=== PATIENT | male | born 1990 | race African-American/Black ===

== ENCOUNTER 2016-05-31 21:16 | Emergency (ER) | payer OTHER ==
[2016-05-31 21:33] VITALS: BP 148/84
--- NOTE | 2016-05-31 22:45 | UC ---
Complaint Male HPI - HPI Summary HPI Summary: The patient comes in today for: 1. Dysuria, hematuria, but no hemaspermia: Onset: March of 2016 Palliative/provocative: Nothing makes his symptoms better or worse. Quality: Dysuria. Region/radiation: Through the whole length of the penis. Severity: 10/10 with urination. 0/10 without urination. Time: Comes and goes Associated symptoms: Fevers: None. PRevious evaluation: He was seen in March. He was tested for GC/ Chlymidia. Both were negative. He has not seen a urologist. He has no PCP. No sores in the mouth. No problems with his eyes. He denies any ejactulodynia or prostatitis. * - History of Current Complaint Chief Complaint: UCGU Stated Complaint: COMPLAINT Time Seen by Provider: 05/31/16 22:36 Hx Obtained From: Patient - Allergies/Home Medications Allergies/Adverse Reactions: Allergies Allergy/AdvReac Type Severity Reaction Status Date / Time No Known Allergies Allergy Verified 10/24/15 20:41 PMH/Surg Hx/FS Hx/Imm Hx Previously Healthy: Yes Endocrine History Of: Denies: Diabetes, Thyroid Disease, Hyperthyroidism, Hypothyroidism, Dyslipidemia Cardiovascular History Of: Denies: Cardiac Disorders, Hypertension, Pacemaker/ICD, Myocardial Infarction , Congestive Heart Failure, Atrial Fibrillation, Deep Vein Thrombosis, Bleeding Disorders Respiratory History Of: Denies: COPD, Asthma, Bronchitis, Pneumonia, Pulmonary Embolism GI/ History Of: Denies: Gastroesophageal Reflux, Ulcer, Gastrointestinal Bleed, Gall Bladder Disease, Kidney Stones, Diverticulitis, Renal Disease, Urosepsis Neurological History Of: Denies: TIA, CVA, Dementia, Seizures, Migraine Psychological History Of: Denies: Anxiety, Depression, Bipolar Disorder, Schizophrenia, Post Traumatic Stress Disorder Cancer History Of: Denies: Lung Cancer, Colorectal Cancer, Breast Cancer, Prostate Cancer, Cervical Cancer Other History Of: Negative For: HIV, Hepatitis B, Hepatitis C, Anticoagulant Therapy - Surgical History Surgical History: None - Family History Known Family History: Positive: Hypertension Negative: Cardiac Disease - Social History Occupation: Employed Full-time Alcohol Use: None Substance Use Type: None Smoking Status (MU): Never Smoked Tobacco Review of Systems Constitutional: Negative Skin: Negative Eyes: Negative ENT: Negative Respiratory: Negative Cardiovascular: Negative Gastrointestinal: Negative Genitourinary: Dysuria, Hematuria Motor: Negative All Other Systems Reviewed And Are Negative: Yes Physical Exam Triage Information Reviewed: Yes Appearance: Well-Appearing, No Pain Distress, Well-Nourished Vital Signs: Initial Vital Signs Temp 98.0 F 05/31/16 21:29 Pulse 75 05/31/16 21:29 Resp 18 05/31/16 21:29 BP 148/84 05/31/16 21:29 Pulse Ox 99 05/31/16 21:29 Vital Signs Reviewed: Yes Eyes: Positive: Conjunctiva Clear. Negative: Discharge ENT: Positive: Hearing grossly normal. Negative: Pharyngeal erythema, Nasal congestion, Nasal drainage, TM bulging, TM dull, TM red, Tonsillar swelling, Tonsillar exudate Dental: Negative: Gross Decay/Caries @, Dental Fracture @ Neck: Positive: Supple, Nontender, No Lymphadenopathy. Negative: Nuchal Rigidity Respiratory: Positive: Chest non-tender, Lungs clear, No respiratory distress, No accessory muscle use. Negative: Crackles, Wheezing Cardiovascular: Positive: RRR, No Murmur Abdomen Description: Positive: Nontender, No Organomegaly, Soft. Negative: Distended, Guarding Musculoskeletal: Positive: Strength Intact, ROM Intact, No Edema Neurological: Positive: Alert, Muscle Tone Normal Psychological: Positive: Age Appropriate Behavior, Consolable Skin: Negative: rashes, breakdown UC Physical Exam Vital Signs On Initial Exam: Initial Vitals Temp Pulse Resp BP Pulse Ox 98.0 F 75 18 148/84 99 05/31/16 21:29 05/31/16 21:29 05/31/16 21:29 05/31/16 21:29 05/31/16 21:29 - Genitalia Exam Male Genitalia: Not Circumcised, Other - The penis is soft with no masses or tenderness. No urethral discharge even with milking the penis. Testes were down bilaterally and free of any masses or tenderness. No inquinal adenopathy and no hernia presant. He declined a prostate exam due to shortness of time. No lesions such as ulcers. Diagnostics - Laboratory Diagnostic Studies Completed/Ordered: Urine screen: Specific gravity: 1.025. WBC: 25. Nitrite: (-). Blood: 5-10. Protein: 30. Glucose: (-) Complaint Male Course/Dx - Course Course Of Treatment: Patient was told that we will do some tests (GC/chlam, ureaplasm, mycoplasma) and refer him to urology. To help with pain, will give him pyridium. - Differential Dx/Diagnosis Differential Diagnosis/HQI/PQRI: Epididymitis, Prostatitis Provider Diagnoses: dysuria. hematuria Discharge - Discharge Plan Condition: Stable Disposition: HOME Prescriptions: Phenazopyridine TAB* [Pyridium TAB*] 200 mg PO TID #60 tab Patient Education Materials: Hematuria (ED), Dysuria (ED) Referrals: Jarek Gardner MD [Primary Care Provider] - Minh Swann MD [Medical Doctor] - As Soon As Possible (Call the urologist's office for an appointment as soon as you can for a follow-up evaluation.)
[2016-05-31] MEDS ORDERED: Phenazopyridine TAB* 100 MG PO ONE (22:47)
[2016-06-03 16:28] LABS: Mycoplasma hominis Result Negative; Mycoplasma hominis Source URINE; Ureaplasma Source URINE; Ureaplasma parvum PCR Negative; Ureaplasma urealyticum PCR Negative
== END 2016-05-31 22:57 | disposition home or self-care (01) ==
LOC: UCEAST 21:16
DX: R30.0 Dysuria (principal); R31.9 Hematuria, unspecified
CPT/HCPCS: 81002; 87086; 87491; 87591; 87798; 99212; A9270-GY; G0463

== ENCOUNTER 2016-06-21 19:13 | Emergency (ER) | payer OTHER ==
[2016-06-21 19:22] VITALS: BP 131/73
[2016-06-21] MEDS ORDERED: Benzocaine/Butamben/Tetracain* SPRAY ONE (19:39)
[2016-06-21] MEDS ORDERED: Ethyl Chloride SPRAY (NF) BTL ONE (19:44)
--- NOTE | 2016-06-21 19:54 | UC ---
Skin Complaint HPI - HPI Summary HPI Summary: pt presents with c/o of tenderness and mild swelling in right thumb along cuticle - History of Current Complaint Chief Complaint: UCSkin Time Seen by Provider: 06/21/16 19:16 Stated Complaint: THUMB PAIN Hx Obtained From: Patient Onset/Duration: Gradual Onset, Lasting Days Skin Exposure Onset/Duration: Days Ago Timing: Constant Onset Severity: Mild Current Severity: Mild Character: Pain, Redness, Raised Aggravating: Touch Alleviating: Nothing Associated Signs & Symptoms: Positive: Tenderness - Allergy/Home Medications Allergies/Adverse Reactions: Allergies Allergy/AdvReac Type Severity Reaction Status Date / Time No Known Allergies Allergy Verified 06/21/16 19:21 Home Medications: Home Medications NK [No Home Medications Reported] 06/21/16 [History Confirmed 06/21/16] Review of Systems Constitutional: Negative Skin: Other - paronychia right thumb Eyes: Negative ENT: Negative Respiratory: Negative Cardiovascular: Negative Gastrointestinal: Negative Genitourinary: Negative Motor: Negative Neurovascular: Negative Musculoskeletal: Negative Neurological: Negative Psychological: Negative All Other Systems Reviewed And Are Negative: Yes PMH/Surg Hx/FS Hx/Imm Hx Previously Healthy: Yes Endocrine History Of: Denies: Diabetes, Thyroid Disease, Hyperthyroidism, Hypothyroidism, Dyslipidemia Cardiovascular History Of: Denies: Cardiac Disorders, Hypertension, Pacemaker/ICD, Myocardial Infarction , Congestive Heart Failure, Atrial Fibrillation, Deep Vein Thrombosis, Bleeding Disorders Respiratory History Of: Denies: COPD, Asthma, Bronchitis, Pneumonia, Pulmonary Embolism GI/ History Of: Denies: Gastroesophageal Reflux, Ulcer, Gastrointestinal Bleed, Gall Bladder Disease, Kidney Stones, Diverticulitis, Renal Disease, Urosepsis Neurological History Of: Denies: TIA, CVA, Dementia, Seizures, Migraine Psychological History Of: Denies: Anxiety, Depression, Bipolar Disorder, Schizophrenia, Post Traumatic Stress Disorder Cancer History Of: Denies: Lung Cancer, Colorectal Cancer, Breast Cancer, Prostate Cancer, Cervical Cancer Other History Of: Negative For: HIV, Hepatitis B, Hepatitis C, Anticoagulant Therapy - Surgical History Surgical History: Yes Surgery Procedure, Year, and Place: WISDOM TEETH - Family History Known Family History: Positive: Hypertension Negative: Cardiac Disease - Social History Alcohol Use: None Substance Use Type: None Smoking Status (MU): Never Smoked Tobacco Physical Exam Triage Information Reviewed: Yes Appearance: Well-Appearing Vital Signs: Initial Vital Signs Temp 98.7 F 06/21/16 19:15 Pulse 59 06/21/16 19:15 Resp 16 06/21/16 19:15 BP 131/73 06/21/16 19:15 Eye Exam: Normal Respiratory: Positive: No respiratory distress Musculoskeletal Exam: Normal Neurological Exam: Normal Psychological Exam: Normal Skin Exam: Other - paronychia right thumb Course/Dx - Differential Diagnoses - Skin Complaint Differential Diagnoses: Cellulitis, Other - paronychia, right thumb - Diagnoses Provider Diagnoses: paronychia, right thumb Procedures - Incision and Drainage Site: right thumb Anesthesia: Topical Instrument(s): Scalpel - incision and drainage with 11 blade, ethyl chloride spray applied, small incision made, small amount of purulent drainage. Pt then place right thumb in normal saline and hibicleanse to soak post drainage.. Pt tolerated procedure well. Discharge - Discharge Plan Condition: Stable Disposition: HOME Patient Education Materials: Paronychia (ED) Referrals: Jarek Gardner MD [Primary Care Provider] -
== END 2016-06-21 20:04 | disposition home or self-care (01) ==
LOC: UCEAST 19:13
DX: L03.011 Cellulitis of right finger (principal)
CPT/HCPCS: 10060; 99211; A9270-GY; G0463

== ENCOUNTER 2017-05-28 16:05 | Emergency (ER) | payer SELFPAY ==
[2017-05-28 16:21] VITALS: BP 136/75
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
== END 2017-05-28 16:59 | disposition home or self-care (01) ==
LOC: UCEAST 16:05
DX: S06.0X9A Concussion with loss of consciousness of unspecified duration, initial encounter (principal); S00.03XA Contusion of scalp, initial encounter; V47.5XXA Car driver injured in collision with fixed or stationary object in traffic accident, initial encounter; Y93.89 Activity, other specified; Y92.410 Unspecified street and highway as the place of occurrence of the external cause; E66.9 Obesity, unspecified; R51 Headache
CPT/HCPCS: 99212; G0463

== ENCOUNTER 2017-05-28 22:02 | Emergency (ER) | payer SELFPAY ==
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
[2017-05-28] MEDS ORDERED: Ibuprofen TAB* 800 MG PO ONE (23:21)
[2017-05-28 23:46] VITALS: BP 131/79
== END 2017-05-28 23:39 | disposition home or self-care (01) ==
LOC: ED 22:02
DX: S06.0X0A Concussion without loss of consciousness, initial encounter (principal); V47.0XXA Car driver injured in collision with fixed or stationary object in nontraffic accident, initial encounter; Y92.410 Unspecified street and highway as the place of occurrence of the external cause
CPT/HCPCS: 99282; A9270-GY

== ENCOUNTER 2017-08-14 18:02 | Emergency (ER) | payer BC ==
[2017-08-14 18:16] VITALS: BP 137/69
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
[2017-08-14] MEDS ORDERED: Cyclobenzaprine TAB* 10 MG PO ONE (19:14)
[2017-08-14] MEDS ORDERED: Naproxen TAB* 250 MG PO ONE (19:14)
--- NOTE | 2017-08-14 19:24 | RAD ---
Indication: Low back pain after playing basketball 4 days ago. Comparison: May 11, 2014 Technique: AP and lateral views lumbar sacral spine. Report: Straightening relative to normal lumbar lordosis without spondylolisthesis at any level. Negative for fracture. Moderate L5-S1 disc space narrowing without change. Unremarkable paraspinal soft tissue contours. IMPRESSION: 1. Negative for fracture or spondylolisthesis. 2. Moderate L5-S1 disc space narrowing without change. Given absence of secondary degenerative findings such as vertebral endplate osteophytosis or reactive endplate sclerosis the narrowing may represent congenital variation rather than degenerative spondylosis.
== END 2017-08-14 19:49 | disposition home or self-care (01) ==
LOC: UCEAST 18:02
DX: S39.012A Strain of muscle, fascia and tendon of lower back, initial encounter (principal); X58.XXXA Exposure to other specified factors, initial encounter; Y93.67 Activity, basketball; Y92.310 Basketball court as the place of occurrence of the external cause
CPT/HCPCS: 72100; 99212; A9270-GY; G0463

== ENCOUNTER 2017-11-08 22:16 | Emergency (ER) | payer SELFPAY ==
[2017-11-08] MEDS ORDERED: Cyclobenzaprine TAB* 10 MG PO ONE (23:15)
[2017-11-08] MEDS ORDERED: Ibuprofen TAB* 800 MG PO ONE (23:15)
--- NOTE | 2017-11-08 23:17 | ED ---
Upper Extremity Pain - HPI Summary HPI Summary: 26-year-old male presents with right shoulder pain today. He states he was trying to restrain a patient and he felt a pop in his shoulder. He denies any history of dislocation or injury to shoulder. He denies any numbness or tingling. He stated pain is worse when tries to move his arm. No other injury. He hasn't taking anything for his pain. 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 - History of Current Complaint Chief Complaint: EDExtremityUpper Stated Complaint: RT SHOULDER INJURY Time Seen by Provider: 11/08/17 22:48 - Allergies/Home Medications Allergies/Adverse Reactions: Allergies Allergy/AdvReac Type Severity Reaction Status Date / Time No Known Allergies Allergy Verified 08/14/17 18:16 PMH/Surg Hx/FS Hx/Imm Hx Endocrine/Hematology History: Denies: Hx Anticoagulant Therapy, Hx Diabetes, Hx Thyroid Disease Cardiovascular History: Denies: Hx Congestive Heart Failure, Hx Deep Vein Thrombosis, Hx Hypertension , Hx Myocardial Infarction, Hx Pacemaker/ICD, Hx Peripheral Vascular Disease Respiratory History: Denies: Hx Asthma, Hx Chronic Obstructive Pulmonary Disease (COPD), Hx Lung Cancer, Hx Pneumonia, Hx Pulmonary Embolism GI History: Denies: Hx Gall Bladder Disease, Hx Gastrointestinal Bleed, Hx Ulcer, Hx Urosepsis History: Denies: Hx Kidney Stones, Hx Renal Disease Musculoskeletal History: Denies: Hx Arthritis, Hx Osteoporosis Sensory History: Denies: Hx Cataracts, Hx Contacts or Glasses, Hx Glaucoma Opthamlomology History: Denies: Hx Cataracts, Hx Contacts or Glasses, Hx Glaucoma Neurological History: Denies: Hx Dementia, Hx Headaches, Hx Migraine, Hx Seizures, Hx Transient Ischemic Attacks (TIA) Psychiatric History: Denies: Hx Anxiety, Hx Depression, Hx Schizophrenia, Hx Bipolar Disorder - Surgical History Surgery Procedure, Year, and Place: WISDOM TEETH Infectious Disease History: No Infectious Disease History: Denies: Hx Clostridium Difficile, Hx Hepatitis, Hx Human Immunodeficiency Virus (HIV), Hx of Known/Suspected MRSA, Hx Shingles, Hx Tuberculosis, Hx Known/ Suspected VRE, Hx Known/Suspected VRSA, History Other Infectious Disease, Traveled Outside the [place] in Last 30 Days - Family History Known Family History: Positive: Hypertension Negative: Cardiac Disease - Social History Alcohol Use: None Hx Substance Use: No Substance Use Type: Reports: None Hx Tobacco Use: No Smoking Status (MU): Never Smoked Tobacco Review of Systems Negative: Fever Negative: Chest Pain Negative: Shortness Of Breath Positive: Myalgia - right shoulder pain All Other Systems Reviewed And Are Negative: Yes Physical Exam Triage Information Reviewed: Yes Vital Signs On Initial Exam: Initial Vitals Temp Pulse Resp BP Pulse Ox 98.4 F 66 16 135/65 98 11/08/17 22:20 11/08/17 22:20 11/08/17 22:20 11/08/17 22:20 11/08/17 22:20 Vital Signs Reviewed: Yes Appearance: Positive: Well-Appearing Skin: Positive: Warm, Dry Head/Face: Positive: Normal Head/Face Inspection Eyes: Positive: Normal, Conjunctiva Clear ENT: Positive: Pharynx normal Respiratory/Lung Sounds: Positive: Clear to Auscultation, Breath Sounds Present Cardiovascular: Positive: Normal, RRR Musculoskeletal: Positive: Limited @ - right shoulder, Other - tenderness right shoulder, no step off, good pulses, capillary refill<2 secs, good fruit farmworker strenght Neurological: Positive: Normal Psychiatric: Positive: Normal Diagnostics - Vital Signs Vital Signs Temp Pulse Resp BP Pulse Ox 11/08/17 23:13 97.9 F 53 18 120/61 99 11/08/17 22:20 98.4 F 66 16 135/65 98 - Laboratory Lab Statement: Any lab studies that have been ordered have been reviewed, and results considered in the medical decision making process. - Radiology shoulder Xray Interpretation: No Acute Changes Radiology Interpretation Completed By: ED Physician Course/Dx - Course Course Of Treatment: 26-year-old male presents with right shoulder pain today. He states he was trying to restrain a patient and he felt a pop in his shoulder. He denies any history of dislocation or injury to shoulder. He denies any numbness or tingling. He stated pain is worse when tries to move his arm. No other injury. He hasn't taking anything for his pain. 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 On exam no deformity seen. Neurovascular intact. Tenderness over right shoulder. Is very hesitant to move the shoulder due to pain. X-ray shows no dislocation or fracture. Gave sling for comfort. We'll place on short course muscle relaxers. We'll have follow-up with orthopedist as may have rotator cuff injury. Patient understands agrees with plan. - Diagnoses Differential Diagnosis/HQI/PQRI: Positive: Fracture (Closed), Strain, Sprain Provider Diagnoses: Right shoulder pain Discharge - Sign-Out/Discharge Documenting (check all that apply): Patient Departure - Discharge Plan Condition: Good Disposition: HOME Prescriptions: Cyclobenzaprine TAB* [Flexeril 10 MG TAB*] 10 mg PO TID PRN #21 tab PRN Reason: Pain Patient Education Materials: Shoulder Pain (ED) Forms: *Work Release Referrals: [facility] [place] [facility]ERR[facility] [Outside] Aracely Pantoja MD [Medical Doctor] - Additional Instructions: Take Tylenol and ibuprofen every 6 hours as needed for pain take muscle relaxer three times a day Ice/heat Can rest for one day and then need to do range of motion activities for shoulder Follow up with ortho Return to ED if develop any new or worsening symptoms - Billing Disposition and Condition Condition: GOOD Disposition: Home
[2017-11-08 23:37] VITALS: BP 147/77
--- NOTE | 2017-11-09 08:04 | RAD ---
Indication: RIGHT shoulder pain following injury. Unable to raise the arm. Comparison: No relevant prior exams available on the [facility] for comparison. Technique: Internal rotation AP, external rotation Grashey, scapular Y, axillary views RIGHT shoulder Report: Negative for fracture. Normal acromioclavicular and glenohumeral joint alignment. Unremarkable soft tissue contours. IMPRESSION: #. Negative radiographic exam of the RIGHT shoulder. R0
== END 2017-11-08 23:35 | disposition home or self-care (01) ==
LOC: ED 22:16
DX: M25.511 Pain in right shoulder (principal); Z82.49 Family history of ischemic heart disease and other diseases of the circulatory system
CPT/HCPCS: 99282; A9270-GY

== ENCOUNTER 2018-01-18 17:44 | Emergency (ER) | payer SELFPAY ==
--- OUTSIDE RECORDS SUMMARY | 2018-01-18 17:51 | XMS REPORT ---
:1990 External Reference #:[id number] Author Organization [facility] Address [address] [place] [address] [place] [address] Phone [phone] Care Team Providers Name Role Phone Aracely Pantoja M.D. Care Team Information Survey Manager Unavailable Payers Type Date Identification Numbers Payment Subscriber Provider Workers Compensation Onset: Policy Number: [facility] [employer] 2017 [id number] [employer] [facility] [employer] Group Name: FX # [address] [facility] PayID: [place] [address] Problems Date Description Provider Status Onset: 11/15/2017 Sprain of acromioclavicular ligament Aracely Pantoja M.D. Active Family History Date Family Member(s) Problem(s) Comments General No Current Problems Social History Type Date Description Comments ETOH Use Denies alcohol use Smoking Patient has never smoked Exercise Type/Frequency Exercises regularly Allergies, Adverse Reactions, Alerts Date Description Reaction Status Severity Comments 11/15/2017 NKDA active Medications Medication Date Status Form Strength Qnty SIG Indications Ordering Provider Meloxicam Active Tablets 15mg 30tabs 1 by M25.511 Aracely 018 mouth Kit, every M.D. day Cyclobenzaprine 0 Active Tablets 10mg Unknown HCL 000 Vital Signs Date Vital Result Comment 12/27/2017 Height 73 inches 6'1" Weight 212.00 lb BP Systolic 104 mmHg BP Diastolic 68 mmHg Body Temperature 97.8 F BMI (Body Mass Index) 28.0 kg/m2 11/29/2017 Height 72 inches 6'0" Heart Rate 48 /min BP Systolic Sitting 102 mmHg BP Diastolic Sitting 70 mmHg Respiratory Rate 16 /min Pain Level 8 11/15/2017 Height 72 inches 6'0" Weight 222.00 lb Heart Rate 60 /min BP Systolic 112 mmHg BP Diastolic 68 mmHg BMI (Body Mass Index) 30.1 kg/m2 Results Description No Information Procedures Description No Information Encounters Type Date Location Provider CPT E/M Dx Office Visit 12/27/2017 [facility] Aracely Pantoja M.D. 18670 M25.511 2:00p Of CRomeo W19.xxxA S42.001A Office Visit 11/29/2017 2:00p [facility] Aracely Pantoja, 87445 S42.001A Lamont Dash M25.511 W19.xxxA Office Visit 11/15/2017 1:45p [facility] Aracely Pantoja M.D. 34579 M25.511 C.MVeneciaAVenecia S43.51xA W19.xxxA S43.51xA Plan of Care Future Appointment(s):02/07/2018 2:00 pm - Aracely Pantoja M.D. at [facility].12/27/2017 - Aracely Pantoja M.D.M25.511 Pain in right shoulderNew Xrays:Shoulder Right 2+ VWSFollow up:Follow up: 6 momooL83.xxxA Unspecified fall, initial krosyhwboJ90.001A Fracture of unsp part of right clavicle, init for clos fx
[2018-01-18 17:59] VITALS: BP 139/69
--- NOTE | 2018-01-18 18:27 | UC ---
Throat Pain/Nasal Bao HPI - HPI Summary HPI Summary: The patient is a 27-year-old male with a 5 day history of fever/ chills, headache, and myalgias. He has no nausea vomiting or diarrhea. He has no chest pain or shortness of breath. He denies any earache or runny nose. He has had a very mild intermittent sore throat. He has not had a cough. He has no abdominal pain. He has had some low back pain. Denies any rash. He has some mild dysuria that started yesterday morning. He has no increased frequency of urination but no hesitancy of urination. - History of Current Complaint Chief Complaint: UCGeneralIllness Stated Complaint: FEVER,ST,ACHES Time Seen by Provider: 01/18/18 18:08 Hx Obtained From: Patient Onset/Duration: Gradual Onset Severity: Moderate Pain Intensity: 4 Pain Scale Used: 0-10 Numeric Cough: None Associated Signs & Symptoms: Positive: Fever. Negative: Dysphagia, FB Sensation , Drooling, Wheezing, Hoarseness, Sinus Discomfort, Nasal Discharge, Vomiting, Rash - Epiglottits Risk Factors Epiglottis Risk Factors: Negative - Allergies/Home Medications Allergies/Adverse Reactions: Allergies Allergy/AdvReac Type Severity Reaction Status Date / Time Penicillins Allergy Rash Verified 01/18/18 17:59 Home Medications: Home Medications Acetaminophen/Caff/Dihydrocod [Acetaminophen/Caffeine/Di 325-30-16 mg] 1 tab PO DAILY 01/18/18 [History Confirmed 01/18/18] PMH/Surg Hx/FS Hx/Imm Hx Previously Healthy: Yes Other History Of: Negative For: HIV, Hepatitis B, Hepatitis C, Anticoagulant Therapy - Surgical History Surgical History: Yes Surgery Procedure, Year, and Place: WISDOM TEETH - Family History Known Family History: Positive: Hypertension Negative: Cardiac Disease - Social History Alcohol Use: None Substance Use Type: None Smoking Status (MU): Never Smoked Tobacco Review of Systems Constitutional: Fever, Chills, Fatigue Skin: Negative Eyes: Negative ENT: Sore Throat - mild Respiratory: Negative Cardiovascular: Negative Gastrointestinal: Negative Genitourinary: Dysuria Motor: Negative Neurovascular: Negative Musculoskeletal: Myalgia Neurological: Negative Psychological: Negative Is Patient Immunocompromised?: No All Other Systems Reviewed And Are Negative: Yes Physical Exam Triage Information Reviewed: Yes Appearance: Well-Appearing, No Pain Distress, Well-Nourished Vital Signs: Initial Vital Signs Temp 98.8 F 01/18/18 17:53 Pulse 76 01/18/18 17:53 Resp 18 01/18/18 17:53 BP 139/69 01/18/18 17:53 Pulse Ox 100 01/18/18 17:53 Vital Signs Reviewed: Yes Eyes: Positive: Conjunctiva Clear ENT: Positive: Hearing grossly normal, Pharynx normal, TMs normal, Uvula midline. Negative: Pharyngeal erythema, Nasal congestion, Nasal drainage, TM bulging, TM dull, TM red, Tonsillar swelling, Tonsillar exudate, Trismus, Muffled voice, Hoarse voice, Dental tenderness, Sinus tenderness Dental Exam: Normal Neck: Positive: Supple, Nontender, No Lymphadenopathy Respiratory: Positive: Lungs clear, Normal breath sounds, No respiratory distress, No accessory muscle use Cardiovascular: Positive: RRR, No Murmur Abdomen Description: Positive: Nontender, No Organomegaly, Soft. Negative: CVA Tenderness (R), CVA Tenderness (L), Distended, Guarding Bowel Sounds: Positive: Present Musculoskeletal: Positive: ROM Intact, No Edema Neurological: Positive: Alert, Muscle Tone Normal Psychological Exam: Normal Skin Exam: Normal Diagnostics - Laboratory Diagnostic Studies Completed/Ordered: UA: tr leuks. strep (-) Throat Pain/Nasal Course/Dx - Differential Dx/Diagnosis Provider Diagnoses: febrile illness. pharyngitis. dysuria Discharge - Sign-Out/Discharge Documenting (check all that apply): Patient Departure All imaging exams completed and their final reports reviewed: No Studies - Discharge Plan Condition: Stable Disposition: HOME Prescriptions: DOXYcycline CAP(*) [DOXYcycline 100MG CAP(*)] 100 mg PO BID #20 cap Patient Education Materials: Pharyngitis (ED), Fever in Adults (ED), Dysuria ( ED) Referrals: No Primary Care Phys,NOPCP [Primary Care Provider] - Additional Instructions: recheck in 2-3 days if still febrile recheck for new or worsening symptoms a urine culture is pending - Billing Disposition and Condition Condition: STABLE Disposition: Home
== END 2018-01-18 18:37 | disposition home or self-care (01) ==
LOC: UCEAST 17:44
DX: R50.9 Fever, unspecified (principal); J02.9 Acute pharyngitis, unspecified; R30.0 Dysuria; M54.5 Low back pain; Z88.0 Allergy status to penicillin
CPT/HCPCS: 81003; 87086; 87491; 87591; 87651; 99212; G0463

== ENCOUNTER 2018-02-28 11:54 | Emergency (ER) | payer OTHER ==
--- OUTSIDE RECORDS SUMMARY | 2018-02-28 12:01 | XMS REPORT ---
:1990 External Reference #:[id number] Author Organization [facility] Address [address] [place] [address] Phone [phone] Care Team Providers Name Role Phone Patient's Choice Primary Care Physician Unavailable Payers Type Date Identification Numbers Payment Subscriber Provider Workers Compensation Onset: Policy Number: [facility] [employer] 2017 [id number] [facility] Fund Group Name: FX # [id number] [facility] PayID: [place] [address] Problems Date Description Provider Status Onset: 11/15/2017 [...] 000 Vital Signs Date Vital Result Comment 02/07/2018 Height 73 inches 6'1" Weight 204.00 lb BP Systolic 102 mmHg BP Diastolic 62 mmHg Body Temperature 98.1 F BMI (Body Mass Index) 26.9 kg/m2 12/27/2017 Height 73 inches 6'1" Weight 212.00 [...] Visit 12/27/2017 [facility] Aracely Pantoja M.D. 10431 M25.511 2:00p Of C.M.AVenecia W19.xxxA S42.001D Office Visit 11/29/2017 2:00p [facility] Aracely Pantoja 47975 S42.001A C.MRossana Dash M25.511 W19.xxxA Office Visit 11/15/2017 1:45p [facility] Aracely Pantoja M.D. 70083 M25.511 C.MRossana S43.51xA W19.xxxA S43.51xA Plan of Care 02/07/2018 - Aracely Pantoja M.D.M25.511 Pain in right shoulderFollow up:Follow up : As kdlvdgF18.xxxA Unspecified fall, initial dkdztpwioI94.001D Fx unsp part of r clavicle, subs for fx w vinicius heal
--- OUTSIDE RECORDS SUMMARY | 2018-02-28 12:01 | XMS REPORT ---
:1990 External Reference #:[id number] Author Organization [facility] Address [address] [place] [address] [place] [address] Phone [phone] Care Team Providers Name Role Phone Patient's Choice Primary Care Physician Unavailable Payers Type Date Identification Numbers Payment Subscriber Provider Workers Compensation Onset: Policy Number: [facility] [employer] 2017 [id number] [employer] Fund Group Name: FX # [address] [facility] PayID: [place] [address] Problems Date Description Provider Status Onset: 11/15/2017 Sprain of acromioclavicular ligament Aracely Pantoja M.D. Active Onset: 02/21/2018 Fx unsp part of r clavicle, subs for fx w Aracely Pantoja M.D. Active routn heal Onset: 02/21/2018 Shoulder joint pain Aracely Pantoja M.D. Active Family History Date [...] 0 Active Tablets 10mg Unknown HCL 000 Meloxicam Hx Tablets 15mg 30tabs 1 by M25.511 Aracely 018 - mouth Kit, every M.D. 018 day Vital Signs Date Vital Result Comment 02/21/2018 Height 73 inches 6'1" Weight 201.00 lb BP Systolic 124 mmHg BP Diastolic 64 mmHg Body Temperature 97.9 F BMI (Body Mass Index) 26.5 kg/m2 02/07/2018 Height 73 inches 6'1" Weight 204.00 [...] Location Provider CPT E/M Dx Office Visit 02/21/2018 [facility] Aracely Pantoja M.D. 81030 M25.511 3:45p Of Lamont W19.xxxD S42.001D Office Visit 02/07/2018 2:00p [facility] Aracely Pantoja M.D. 26710 M25.511 C.MRossana W19.xxxA S42.001D Office Visit 12/27/2017 2:00p [facility] Aracely Pantoja M.D. 19335 M25.511 CVeneciaMRossana W19.xxxA S42.001D Office Visit 11/29/2017 2:00p [facility] Aracely Pantoja 79953 S42.001A Lamont Dash M25.511 W19.xxxA Office Visit 11/15/2017 1:45p [facility] Aracely Pantoja M.D. 24347 M25.511 CRomeo S43.51xA W19.xxxA S43.51xA Plan of Care Future Appointment(s):04/04/2018 2:45 pm - Aracely Pantoja M.D. at [facility]02/21/2018 - Aracely Pantoja M.D.M25.511 Pain in right shoulderNew Medication:Meloxicam 15 mgNew Xrays:Shoulder Right 2+ VWSNew Therapy :Physical TherapyFollow up:Follow up: 4 yntjkD11.xxxD Unspecified fall, subsequent saezywabnX15.001D Fx unsp part of r clavicle, subs for fx margarito cox
[2018-02-28 12:13] VITALS: BP 123/67
--- NOTE | 2018-02-28 12:58 | UC ---
Respiratory Complaint HPI - HPI Summary HPI Summary: 27 yo male with 4 day hx of cough, sore throat and post nasal drip no f/c no n/v/d no cp or sob mild myalgias - History of Current Complaint Chief Complaint: UCRespiratory Stated Complaint: COUGH Time Seen by Provider: 02/28/18 12:48 Hx Obtained From: Patient Onset/Duration: Sudden Onset, Gradual Onset Timing: Constant Severity Initially: Mild Severity Currently: Moderate Pain Intensity: 0 Pain Scale Used: 0-10 Numeric Character: Cough: Nonproductive Aggravating Factors: Nothing Alleviating Factors: Nothing Associated Signs And Symptoms: Positive: Nasal Congestion - Allergies/Home Medications Allergies/Adverse Reactions: Allergies Allergy/AdvReac Type Severity Reaction Status Date / Time Penicillins Allergy Rash Verified 02/28/18 12:13 PMH/Surg Hx/FS Hx/Imm Hx Previously Healthy: Yes Other History Of: Negative For: HIV, Hepatitis B, Hepatitis C, Anticoagulant Therapy - Surgical History Surgical History: Yes Surgery Procedure, Year, and Place: WISDOM TEETH - Family History Known Family History: Positive: Hypertension Negative: Cardiac Disease - Social History Alcohol Use: None Substance Use Type: None Smoking Status (MU): Never Smoked Tobacco Review of Systems All Other Systems Reviewed And Are Negative: Yes Constitutional: Positive: Negative Skin: Positive: Negative Eyes: Positive: Negative ENT: Positive: Nasal Discharge, Sinus Congestion Respiratory: Positive: Cough Cardiovascular: Positive: Negative Gastrointestinal: Positive: Negative Genitourinary: Positive: Negative Motor: Positive: Negative Neurovascular: Positive: Negative Musculoskeletal: Positive: Negative Neurological: Positive: Negative Psychological: Positive: Negative Is Patient Immunocompromised?: No Physical Exam Triage Information Reviewed: Yes Appearance: Well-Appearing, No Pain Distress, Well-Nourished Vital Signs: Initial Vital Signs Temp 97.7 F 02/28/18 12:05 Pulse 54 02/28/18 12:05 Resp 18 02/28/18 12:05 BP 123/67 02/28/18 12:05 Pulse Ox 100 02/28/18 12:05 Vital Signs Reviewed: Yes Eyes: Positive: Conjunctiva Clear ENT: Positive: Hearing grossly normal, Nasal congestion, Uvula midline. Negative: Nasal drainage, Trismus, Muffled voice, Hoarse voice, Sinus tenderness Neck: Positive: Supple, Nontender, No Lymphadenopathy Respiratory: Positive: Lungs clear, Normal breath sounds, No respiratory distress, No accessory muscle use Cardiovascular: Positive: RRR, No Murmur Musculoskeletal: Positive: ROM Intact, No Edema Neurological: Positive: Alert Psychological Exam: Normal UC Diagnostic Evaluation - Laboratory O2 Sat by Pulse Oximetry: 100 - normal/not hypoxic Respiratory Course/Dx - Differential Dx/Diagnosis Provider Diagnoses: viral URI Discharge - Sign-Out/Discharge Documenting (check all that apply): Patient Departure All imaging exams completed and their final reports reviewed: No Studies - Discharge Plan Condition: Stable Disposition: HOME Prescriptions: Benzonatate CAP* [Tessalon CAP*] 100 - 200 mg PO TID PRN #28 cap PRN Reason: Cough Fluticasone NASAL SPRAY 50MCG* [Flonase NASAL SPRAY 50MCG*] 2 spray BOTH NARES BID #1 btl Patient Education Materials: Upper Respiratory Infection (ED) Forms: *Work Release Referrals: No Primary Care Phys,NOPCP [Primary Care Provider] - Additional Instructions: recheck for new or worsening symptoms - Billing Disposition and Condition Condition: STABLE Disposition: Home
== END 2018-02-28 13:10 | disposition home or self-care (01) ==
LOC: UCEAST 11:54
DX: J06.9 Acute upper respiratory infection, unspecified (principal); Z88.0 Allergy status to penicillin
CPT/HCPCS: 99212; G0463

== ENCOUNTER 2018-12-20 13:34 | Emergency (ER) | payer SELFPAY ==
[2018-12-20] MEDS ORDERED: Naproxen TAB* 250 MG PO ONE (16:01)
[2018-12-20] MEDS ORDERED: Cyclobenzaprine TAB* 10 MG PO ONE (16:01)
[2018-12-20 16:37] VITALS: BP 141/81
--- NOTE | 2018-12-21 06:00 | ED ---
Back Pain - HPI Summary HPI Summary: Pt. is a 28 y.o male who presents to the ER for left low back pain 2-3 days. Patient does not recall any injuries other than leaning over the bathroom while cleaning it and felt sharp pain in his back. Pain does not radiate into legs. She denies numbness, tingling or weakness in legs. Denies fever, abdominal pain , urinary symptoms, bowel or bladder incontinence or retention. Symptoms are mild in severity. Movement makes symptoms worse. Lying flat makes symptoms better. 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 Patient otherwise denies past medical history. - History of Current Complaint Chief Complaint: EDBackInjuryPain Stated Complaint: BACK PAIN Time Seen by Provider: 12/20/18 15:21 Hx Obtained From: Patient Pain Intensity: 7 Pain Scale Used: 0-10 Numeric - Allergies/Home Medications Allergies/Adverse Reactions: Allergies Allergy/AdvReac Type Severity Reaction Status Date / Time Penicillins Allergy Rash Verified 05/23/18 11:53 PMH/Surg Hx/FS Hx/Imm Hx Previously Healthy: Yes Endocrine/Hematology History: Denies: Hx Anticoagulant Therapy, Hx Diabetes, Hx Thyroid Disease Cardiovascular History: Denies: Hx Congestive Heart Failure, Hx Deep Vein Thrombosis, Hx Hypertension , Hx Myocardial Infarction, Hx Pacemaker/ICD, Hx Peripheral Vascular Disease Respiratory History: Denies: Hx Asthma, Hx Chronic Obstructive Pulmonary Disease (COPD), Hx Lung Cancer, Hx Pneumonia, Hx Pulmonary Embolism GI History: Denies: Hx Gall Bladder Disease, Hx Gastrointestinal Bleed, Hx Ulcer, Hx Urosepsis History: Denies: Hx Kidney Stones, Hx Renal Disease Musculoskeletal History: Denies: Hx Arthritis, Hx Osteoporosis Sensory History: Denies: Hx Cataracts, Hx Contacts or Glasses, Hx Glaucoma, Hx Hearing Aid Opthamlomology History: Denies: Hx Cataracts, Hx Contacts or Glasses, Hx Glaucoma Neurological History: Denies: Hx Dementia, Hx Headaches, Hx Migraine, Hx Seizures, Hx Transient Ischemic Attacks (TIA) Psychiatric History: Denies: Hx Anxiety, Hx Depression, Hx Panic Disorder, Hx Schizophrenia, Hx Bipolar Disorder - Surgical History Surgery Procedure, Year, and Place: WISDOM TEETH Infectious Disease History: No Infectious Disease History: Denies: Hx Clostridium Difficile, Hx Hepatitis, Hx Human Immunodeficiency Virus (HIV), Hx of Known/Suspected MRSA, Hx Shingles, Hx Tuberculosis, Hx Known/ Suspected VRE, Hx Known/Suspected VRSA, History Other Infectious Disease, Traveled Outside the [place] in Last 30 Days - Family History Known Family History: Positive: Hypertension, Non-Contributory Negative: Cardiac Disease - Social History Occupation: Employed Full-time Lives: With Family Alcohol Use: None Hx Substance Use: No Substance Use Type: Reports: None Hx Tobacco Use: No Smoking Status (MU): Never Smoked Tobacco Review of Systems Constitutional: Negative Negative: Fever Gastrointestinal: Negative Negative: Abdominal Pain Genitourinary: Negative Negative: dysuria Positive: Other - Left low back pain Skin: Negative Neurological: Negative Negative: Weakness, Paresthesia, Numbness All Other Systems Reviewed And Are Negative: Yes Physical Exam Triage Information Reviewed: Yes Vital Signs On Initial Exam: Initial Vitals Temp Pulse Resp BP Pulse Ox 98.6 F 59 18 125/74 99 12/20/18 13:36 12/20/18 13:36 12/20/18 13:36 12/20/18 13:36 12/20/18 13:36 Vital Signs Reviewed: Yes Appearance: Positive: Well-Appearing Skin: Positive: Warm, Dry Head/Face: Positive: Normal Head/Face Inspection - Pt. lying in bed in NAD. Eyes: Positive: Normal, EOMI Musculoskeletal: Positive: Other - 5/5 strength in bilateral lower she was flexion and dorsiflexion. Negative straight leg test bilaterally. No midline lumbar tenderness. Pain over left SI joint. Neurological: Positive: Normal, CN Intact II-III Diagnostics - Vital Signs Vital Signs Temp Pulse Resp BP Pulse Ox 12/20/18 16:36 98 F 52 16 141/81 100 12/20/18 16:35 141/81 12/20/18 15:48 51 127/71 99 12/20/18 15:27 51 133/66 100 12/20/18 13:36 98.6 F 59 18 125/74 99 - Laboratory Lab Statement: Any lab studies that have been ordered have been reviewed, and results considered in the medical decision making process. Back Pain Course/Dx - Course Course Of Treatment: Patient with low back pain after bending. No neurological deficits. Imaging is not obtained today. Will treat with a course of Flexeril and naproxen. Advised to stretch and massage. Warm compresses. Follow-up with [facility] if pain persists for further evaluation. Work excuse given. Return precautions discussed. Patient understands and agrees with plan. - Diagnoses Differential Diagnosis/HQI/PQRI: Positive: Herniated Disc, Strain, Sprain Provider Diagnoses: Lumbar strain Discharge ED - Sign-Out/Discharge Documenting (check all that apply): Patient Departure Patient Received Moderate/Deep Sedation with Procedure: No - Discharge Plan Condition: Good Disposition: HOME Prescriptions: Cyclobenzaprine TAB* [Flexeril 10 MG TAB*] 10 mg PO TID PRN #12 tab PRN Reason: Pain - Moderate Naproxen [Naproxen 500 mg tab] 500 mg PO BID #20 tablet Patient Education Materials: Low Back Strain (ED), Sacroiliitis (ED), Lower Back Exercises (ED) Forms: *Work Release Referrals: [facility] [Outside] Additional Instructions: Schedule a follow up appointment with the [facility] Take medication as directed Apply warm compresses Gentle stretching and massage Avoid heavy lifting Return to ER if symptoms change or worsen - Billing Disposition and Condition Condition: GOOD Disposition: Home
== END 2018-12-20 16:36 | disposition home or self-care (01) ==
LOC: ED 13:34
DX: S39.012A Strain of muscle, fascia and tendon of lower back, initial encounter (principal); X58.XXXA Exposure to other specified factors, initial encounter; Y93.E9 Activity, other interior property and clothing maintenance; Y92.002 Bathroom of unspecified non-institutional (private) residence as the place of occurrence of the external cause; Z88.0 Allergy status to penicillin
CPT/HCPCS: 99282; A9270-GY